=== PATIENT | female | born 1955 | race Caucasian/White ===

== ENCOUNTER → 2019-12-24 | Outpatient (CLI) | payer OTHER, MEDICARE | END | disposition home or self-care (01) | LOC: STAR 13:22 | PROVIDERS: ATTEND Anesthesiology | DX: Z01.812 Encounter for preprocedural laboratory examination (principal); Z20.828 Contact with and (suspected) exposure to other viral communicable diseases | CPT/HCPCS: 36415; 87635 ==

== ENCOUNTER 2019-12-28 12:45 | Observation (INO) | payer MEDICARE ==
[~2019-12-28] VITALS: Ht 180.3 cm; Wt 113.2 kg
[~2019-12-28 12:45] MED LIST: BACITRACIN 50,000 UNIT ONE; BUPIVACAINE/PF 0.25% ONE; EPINEPHRINE 1 MG/ML, 1ML ONE
[2019-12-28 13:21] VITALS: BP 156/93
[2019-12-28] MEDS ORDERED: CHLORHEXIDINE 15 ML UDC MM ONE (13:30)
[2019-12-28] MEDS ORDERED: LEVO25TA4 PO (13:42)
[2019-12-28] MEDS ORDERED: ZOLP-413 PO (13:42)
[2019-12-28] MEDS ORDERED: LOSA50TA14 PO (13:42)
[2019-12-28] MEDS ORDERED: DULO30CA2 PO (13:42)
[2019-12-28] MEDS ORDERED: HYDR200T72 PO (13:42)
[2019-12-28] MEDS: LACTATED RINGERS 1,000 ML IV SCH (13:48)
[2019-12-28] MEDS ORDERED: FENTANYL PF 250 MCG/5ML ONE (15:07)
[2019-12-28] MEDS ORDERED: MIDAZOLAM 1 MG/ML, 2ML ONE (15:07)
[2019-12-28] MEDS ORDERED: hydrALAzine 20 MG/ML, 1ML IV PRN (16:00)
[2019-12-28] MEDS ORDERED: OXYcodone 5 MG/5 ML ORAL.SOL UDC PO PRN (16:00)
[2019-12-28] MEDS ORDERED: PROMETHAZINE 25 MG SUPP PR PRN (16:00)
[2019-12-28] MEDS ORDERED: LORazepam 2 MG/ML, 1ML IVPush PRN (16:00)
[2019-12-28] MEDS ORDERED: METHOCARBAMOL 1,000 MG in DEXTROSE 5% 100 ML IV PRN (16:00)
[2019-12-28] MEDS ORDERED: ACETAMINOPHEN 325 MG TABLET PO PRN (16:00)
[2019-12-28] MEDS ORDERED: PROMETHAZINE 25 MG/ML, 1ML IVPush PRN (16:00)
[2019-12-28] MEDS ORDERED: LABETALOL 5MG/ML, 20ML IV PRN (16:00)
[2019-12-28] MEDS ORDERED: HYDROmorphone 1 MG/ML, 1ML INJ IVPush PRN ×2 (16:00→17:00)
[2019-12-28] MEDS ORDERED: DIAZEPAM 5 MG/ML, 2ML IVPush PRN (16:00)
[2019-12-28] MEDS ORDERED: ONDANSETRON 2MG/ML, 2ML IVPush PRN ×2 (16:00→17:00)
[2019-12-28] MEDS ORDERED: VANCOMYCIN 500 MG ONE (16:13)
[2019-12-28] MEDS ORDERED: SUGAMMADEX 200 MG/2 ML IVPush ONE (16:29)
[2019-12-28] MEDS ORDERED: FENTANYL PF 100 MCG/2ML ONE (16:44)
[2019-12-28] MEDS ORDERED: OXYcodone 5 MG/5 ML ORAL.SOL UDC ONE (16:44)
[2019-12-28] MEDS: FENTANYL PF 100 MCG/2ML IV PRN ×3 (16:46→17:11)
[2019-12-28] MEDS ORDERED: METHOCARBAMOL 1,000 MG in DEXTROSE 5% 100 ML IV ONE (17:00)
[2019-12-28] MEDS ORDERED: PROMETHAZINE 25 MG/ML, 1ML IM PRN (17:00)
[2019-12-28] MEDS ORDERED: MAGNESIUM HYDROXIDE 8%, 30ML UDC PO PRN (17:00)
[2019-12-28] MEDS ORDERED: OXYcodone/APAP 5/325MG TABLET PO PRN (17:00)
[2019-12-28] MEDS ORDERED: MEPERIDINE/PF 100 MG/ML IM PRN (17:00)
[2019-12-28] MEDS ORDERED: PHARMACY MAY ADJ FOR RENAL FX MC PRN (17:00)
[2019-12-28] MEDS ORDERED: TIZANIDINE 2MG TABLET PO PRN (17:00)
[2019-12-28] MEDS ORDERED: DIPHENHYDRAMINE 50 MG/ML, 1ML IVPush PRN (17:00)
[2019-12-28] MEDS ORDERED: BISACODYL 10 MG SUPP PR PRN (17:00)
[2019-12-28] MEDS ORDERED: HYDROmorphone 1 MG/ML, 1ML INJ ONE (18:16)
[2019-12-28 19:00] VITALS: BP 108/67
[2019-12-28] MEDS: NS + 20MEQ KCL 1,000 ML IV SCH (20:30)
[2019-12-28] MEDS: SODIUM CHLORIDE FLUSH 10ML SYR IVF SCH (21:00)
[2019-12-28] MEDS: HYDROXYCHLOROQUINE 200 MG TABLET PO SCH (21:45)
[2019-12-28] MEDS: HYDROcodone/APAP 10/325 MG TABLET PO PRN (21:45)
[2019-12-29] MEDS: LACTATED RINGERS 1,000 ML IV SCH (00:23)
[2019-12-29] MEDS: CEFAZOLIN PMX 1GM/50ML 50 ML IVPB SCH ×2 (00:29→08:13)
[2019-12-29 01:28] VITALS: BP 115/67
[2019-12-29 04:13] VITALS: BP 94/51
[2019-12-29] MEDS ORDERED: LEVOTHYROXINE 25 MCG TABLET PO SCH (06:00)
[2019-12-29 07:45] VITALS: BP 126/76
[2019-12-29] MEDS: HYDROXYCHLOROQUINE 200 MG TABLET PO SCH (08:07)
[2019-12-29] MEDS: NS + 20MEQ KCL 1,000 ML IV SCH (08:14)
[2019-12-29] MEDS ORDERED: HYDR-3245 PO (08:32)
[2019-12-29] MEDS ORDERED: TIZA2TAB4 PO (08:32)
[2019-12-29] MEDS ORDERED: SENNA/DOCUSATE TABLET PO SCH (09:00)
[2019-12-29] MEDS: SODIUM CHLORIDE FLUSH 10ML SYR IVF SCH (09:00)
[2019-12-29] MEDS ORDERED: LOSARTAN 50MG TABLET PO SCH ×2 (09:00→21:00)
[2019-12-29] MEDS ORDERED: DULOXETINE 30 MG CAPSULE.DR PO SCH (09:00)
[2019-12-29 12:16] VITALS: BP 109/67
[2019-12-29] MEDS: HYDROcodone/APAP 10/325 MG TABLET PO PRN (14:20)
== END 2019-12-29 16:27 | disposition home or self-care (01) ==
LOC: OUT 12:45 → ORIP 16:38 → 4NE 18:40 → DCLOUNGE 12-29 16:11
PROVIDERS: ADMIT Neurological Surgery; ATTEND Neurological Surgery
DX: M47.816 Spondylosis without myelopathy or radiculopathy, lumbar region (principal); M48.061 Spinal stenosis, lumbar region without neurogenic claudication; I10 Essential (primary) hypertension; F41.8 Other specified anxiety disorders; G47.30 Sleep apnea, unspecified; M19.90 Unspecified osteoarthritis, unspecified site; M71.38 Other bursal cyst, other site; E03.9 Hypothyroidism, unspecified; Z79.899 Other long term (current) drug therapy
CPT/HCPCS: 22867; 63267; 72100; 96361; 96365; 96366; 96367; 97161; 97165; C1776; G0378; J0171; J0690; J1170; J2250; J2800; J3010; J3370; J3480; J3490; J7120